=== PATIENT | male | born 1990 | race Caucasian/White ===

== ENCOUNTER 2017-09-08 21:14 | Inpatient (IN) ==
--- NOTE | 2017-09-08 21:28 | Emergency Department Report ---
Skin/Abscess/FB HPI - General Chief complaint: Skin/Abscess/Foreign Body Stated complaint: Red sore growing/painfull Time Seen by Provider: 09/08/17 21:27 Source: patient Mode of arrival: ambulatory Limitations: no limitations - History of Present Illness HPI narrative: Celestine is a 26 year old white male who comes to ER with cc: pimple to bottom. Noticed pain and swelling today, had girlfriend look at it and she noticed it was very swollen extending into scrotum. They decided to come to the ER to get it checked out. Patient is not diabetic. Prior hx of MRSA about 1.5 years ago. Running low grade fever tonight. complaint: abscess/boil Onset (ago): day(s) (1) Location: buttocks, genitals Relieving factors: none Associated symptoms: fever Treatments prior to arrival: none - Related Data Home Medications Medication Instructions Recorded Confirmed No known Home medications [No home 09/08/17 09/08/17 meds] Allergies Allergy/AdvReac Type Severity Reaction Status Date / Time No Known Allergies Allergy Unverified 05/18/16 14:30 Review of Systems All systems: reviewed and negative except as stated Constitutional: Reports: fever Gastrointestinal: Denies: vomiting Genitourinary: Reports: other (left scrotum with mild swelling) Integumentary: Reports: erythema, lesions, swelling [facility] Clinic Medical History Cellulitis (Acute Medical) - Social History Smoking status: Current every day smoker Physical Exam - General General appearance: alert, in no apparent distress - Head Head exam: atraumatic, normocephalic, normal inspection - Chest Chest inspection: Present: normal inspection, symmetric chest wall rise - Respiratory Respiratory exam: Present: normal lung sounds bilaterally - Cardiovascular Cardiovascular exam: Present: regular rate, normal rhythm - Abdominal Exam Abdominal exam: Present: soft, normal bowel sounds. Absent: distention, tenderness - Skin Skin exam: Present: warm, dry, intact, other (right buttock with erythema, swelling and tenderness extending into left scrotum) - Neurological Exam Neurological exam: Present: alert, oriented X3 - Psychiatric Psychiatric exam: Present: normal affect, normal mood Course Course Narrative: 2219 discussed lab and plan with patient and girlfriend. toradol has been given for pain. it has helped some. us ordered. Dilaudid 1 mg given IV for pain control prior to sono. 2314 Sono done - US Tech reports no obvious fluid collection with perineal sono. [address] Corrigan with [facility] who agrees to accept patient for acute possible obs admission. - Consultations Consultation #1: Dr Talley called @ 2209-labwork reviewed, recommended US and if abscess is present, call hospitalist to admit and consult him for I&D Consultation #2: Telemedicine Dr. Corrigan via [email or web address] Text @[address] Corrigan at 2319 - agree to admit pt for IV abx, serial exams, serial lab monitoring and surgery consult Vital Signs Temperature 99.6 F 09/08/17 21:23 Pulse Rate 100 09/08/17 21:23 Respiratory Rate 20 09/08/17 21:23 Blood Pressure 117/58 09/08/17 21:23 Pulse Oximetry 96 09/08/17 21:23 Temperature 98.9 F 09/08/17 22:49 Pulse Rate 98 09/08/17 22:49 Respiratory Rate 19 09/08/17 22:49 Blood Pressure 112/61 09/08/17 22:49 Pulse Oximetry 100 09/08/17 22:49 Skin/Abscess/Foreign Body - Lab Data Attestation: I reviewed the patient's lab results. Result diagrams: 09/08/17 21:41 09/08/17 21:41 Lab Results 09/08/17 09/08/17 Range/Units 21:41 21:41 WBC 17.7 H (4.5-11.0) T/MM3 RBC 4.65 (4.50-5.90) M/MM3 Hgb 14.8 (13.5-17.5) GM/DL Hct 43.7 (41-53) % MCV 94.0 (80-100) UM3 MCH 31.8 (26-34) UUG MCHC 33.9 (31-37) GM/DL RDW Std Deviation 44.3 (36.9-50.2) FL Plt Count 232 (130-400) T/MM3 MPV 9.6 (9.4-12.4) UM3 Immature Gran % (Auto) Not performed Neut % (Auto) Not performed Lymph % (Auto) Not performed Pepin % (Auto) Not performed Eos % (Auto) Not performed Baso % (Auto) Not performed Neut # (Auto) Not performed Lymph # (Auto) Not performed Pepin # (Auto) Not performed Eos # (Auto) Not performed Baso # (Auto) Not performed Abs Immat Gran (auto) Not performed Neutrophils % (Manual) 84.0 H (33-66) % Band Neutrophils % 3.0 (0-6) % Lymphocytes % (Manual) 2.0 L (23-45) % Monocytes % (Manual) 11.0 H (0-9.0) % Neutrophils # (Manual) 14.9 H (1.8-7.7) T/MM3 Band Neutrophils # 0.5 T/MM3 Lymphocytes # (Manual) 0.4 L (1-4.8) T/MM3 Monocytes # (Manual) 1.9 H (0-0.8) T/MM3 RBC Morph Comment Normal Turbidity < 20 (0-20) Sodium 135 (134-144) MEQ/L Potassium 4.1 (3.6-5) MEQ/L Chloride 97 L (98-107) MEQ/L Carbon Dioxide 28 (22-30) MEQ/L Anion Gap 10 (5-15) MEQ/L BUN 15.0 (9-20) MG/DL Creatinine 1.0 (0.8-1.5) MG/DL GFR Calculation 92 BUN/Creatinine Ratio 15 (6-26) RATIO Glucose 113 H (75-110) MG/DL Calculated Osmolality 262 (261-280) MOSM/KG Calcium 9.3 (8.4-10.2) MG/DL Total Bilirubin 0.90 (0.20-1.30) MG/DL Icterus Index < 2 (0-7) AST 29 (17-59) U/L ALT 39 (21-72) U/L Alkaline Phosphatase 60 (38-126) U/L C-Reactive Protein 59.0 H (0-9) MG/L Total Protein 7.4 (6.3-8.2) G/DL Albumin 4.1 (3.5-5.0) G/DL Globulin 3.3 (2.4-3.6) G/DL Albumin/Globulin Ratio 1.2 (1.1-2.2) RATIO Plasma Lactate 2.6 H (0.6-2.2) MMOL/L Specimen Hemolysis < 15 (0-25) Disposition Clinical Impression: Cellulitis Disposition: To [facility] Acute Care Condition: Stable Prescriptions: No Action No known Home medications [No home meds] 0 #0 misc - Seen By: midlevel and physician Addendum entered and electronically signed by Liliana Rajput APRN 09/08/17 23: 36: Final US report by [facility] shows severe subcutaneous edema within left gluteal tissues and loculated fluid collection which could represent abscess. severe subcutaneous edema within left gluteal tissues. Update of this report called to Dr. Corrigan at [phone]. Call to Dr. Talley at [phone] to update on US.
[2017-09-08] MEDS ORDERED: CLINDAMYCIN PB 600 MG/50 ML BAG IV SCH (21:45)
[2017-09-08] MEDS: SALINE FLUSH 10ml SYRINGE IVF PRN (21:56)
[2017-09-08] MEDS ORDERED: KETOROLAC 30 MG/ML INJECTION IVP ONE (22:03)
[2017-09-08] MEDS ORDERED: HYDROMORPHONE 2 MG/ML INJECTION IVP ONE (22:29)
[2017-09-09 00:28] VITALS: BMI 24.3
[2017-09-09] MEDS ORDERED: SENNA + DOCUSATE TABLET PO PRN (01:03)
[2017-09-09] MEDS ORDERED: ACETAMINOPHEN 650 MG SUPPOSITORY PR PRN (01:03)
[2017-09-09] MEDS ORDERED: ONDANSETRON 4 MG/2 ML INJECTION IVP PRN (01:03)
[2017-09-09] MEDS: SALINE FLUSH 10ml SYRINGE IVF PRN ×2 (01:13→01:57)
[2017-09-09] MEDS: LR 1,000 ML IV SCH ×4 (01:13→13:28)
[2017-09-09] MEDS: NICOTINE 14 MG PATCH TD SCH ×2 (01:35→08:07)
[2017-09-09] MEDS: HYDROCODONE/APAP 5mg/325mg TABLET PO PRN ×2 (01:54→19:00)
[2017-09-09] MEDS: HYDROMORPHONE 2 MG/ML INJECTION IVP PRN ×5 (01:55→23:26)
--- NOTE | 2017-09-09 02:17 | History & Physical Report ---
<Sharan Corrigan I - Last Filed: 09/09/17 02:11> History of Present Illness Date: 09/09/17 Chief complaint: Buttock Pain HPI: Jas is an otherwise healthy 26 year old man with a 1 day history of a painful pustule on his left buttock, with pain and swelling which rapidly increased. He had some chills and subjective fevers and does have a personal history of a MRSA lesion on his forehead, so he presented to the emergency department, where he did prove to have some early evidence of sepsis due to an abscess noted In his left gluteal tissue measuring 1.7 x 0.7 cm on ultrasound with fluid extension into his scrotum. he was placed on vancomycin and clindamycin, Dr. Adams was notified and he is admitted for further evaluation and management. Review of Systems - Constitutional Constitutional: Present: chills, fever(s) - EENMT Eyes: Absent: loss of vision, other - Cardiovascular Cardiovascular: Absent: chest pain, palpitations, syncope - Respiratory Respiratory: Absent: cough, dyspnea - Gastrointestinal Gastrointestinal: Absent: abdominal pain, change in bowel habits, diarrhea - Genitourinary Genitourinary: Present: as per HPI - Integumentary/Breasts Integumentary: Present: as per HPI, lesions ( Prior history of MRSA infection requiring incision and drainage) - Psychiatric Psychiatric: Absent: behavioral changes PFSH Patient Stated Medical History Hypertension Yes: WITH ANESTHESIA Other Cardiology Yes: FELT PALPITATIONS BEFORE Asthma Yes: SEASONAL Other Respiratory Yes: SMOKER Gastroesophageal Reflux Yes: TOOK NEXIUM IN THE PAST Disease Other Musculoskeletal Yes: COLD WEATHER EFFECTS HIS HANDS MRSA Yes: POSSIBLY OR JUST STAPH Anesthesia Reactions Yes: SEVERE HTN Post Traumatic Stress Disorder Yes Substance Use Disorder Yes: IN THE PAST Clinic Medical History Cellulitis (Acute Medical) Surgical History: tonsillectomy and adenoidectomy. repair of the left arm fracture around age 11 Family History: grandparents and father had heart disease, both parents still living - Social History Smoking status: Current every day smoker Packs per day: 0.5 Alcohol intake frequency: a few times a week (social drinker) Medications Home Medications Medication Instructions Recorded Confirmed Type No known Home medications [No home 09/08/17 09/08/17 History meds] Allergies Allergy/AdvReac Type Severity Reaction Status Date / Time No Known Allergies Allergy Unverified 05/18/16 14:30 Exam Vital Signs: Temperature 98.1 F 09/08/17 23:39 Pulse Rate 84 09/08/17 23:39 Respiratory Rate 20 09/08/17 23:39 Blood Pressure 117/56 09/08/17 23:39 Pulse Oximetry 96 09/08/17 23:39 Height/Weight/BMI: Height 6 ft Weight 81.2 kg Body Mass Index 24.3 - Constitutional Present: no acute distress, well developed, average body habitus - Routine HEENT Exam Head: Present: normocephalic, atraumatic Eye: Present: EOMI, PERRL ENT: Present: mucous membranes moist, dentition normal - Routine Neck Exam Present: supple, full ROM - Routine Respiratory Exam Present: CTA bilaterally. Absent: accessory muscle use, dyspnea - Routine Cardiovascular Exam Present: RRR, S1, S2, no murmur - Routine Abdominal Exam Present: soft, normoactive bowel sounds, non distended, non tender - Routine Exam Perineal: Present: erythema, induration, tenderness Comments: there is at least a 2-3 cm area of erythema and apparent induration, about 1 inch to the left of midline in his lower left buttocks which tracks inferiorly. This was somewhat difficult to examine via telemedicine equipment - Routine Extremities Exam Absent: cyanosis, clubbing, edema - Routine Skin Exam Present: intact Comments: See above under peroneal exam - Routine Neurological Exam Present: alert, oriented X3, CN II-XII intact. Absent: sensory deficit, motor deficit - Routine Psychiatric Exam Present: normal affect, normal thought process, cooperative - Additional findings Additional findings: examination performed using telemedicine equipment with the assistance of the bedside nurse Results - Labs CBC & Chem 7: 09/08/17 21:41 09/08/17 21:41 Assessment and Plan (1) Cellulitis Problem details: he had evidence of a loculated fluid collection in his left gluteal tissue, at least 1.70.7 cm, tracking inferiorly, seen on ultrasound in the emergency department. Current visit: Yes Status: Acute (2) Sepsis Problem details: subjective fever, leukocytosis, elevated lactic acid and C- reactive protein Current visit: Yes Status: Acute Assessment and Plan: He is admitted and continued on intravenous clindamycin. He also received a dose of vancomycin in the emergency department. He has responded to triage treatment, and we will recheck lactic acid in about 4 hours prior to that initial draw. Continue intravenous fluids. This is most likely due to recurrent MRSA infection, and the input and expertise of general surgery for comanagement is appreciated. He anticipates the need for incision and drainage. Local anesthesia only might be preferable, And indeed might be all that is necessary, given his history of malignant hypertension with anesthesia in the remote past. I discussed with him in the future not shaving the area with a razor. Will provide further symptomatic, supportive, and diagnostic cares as the current workup, or changes in his clinical scenario indicated. Plan of care was discussed with the patient at the time of my evaluation and he expressed an understanding and desire to proceed. DVT Prophylaxis: SCD's Sepsis Assessment - Evaluation Possible source: skin/soft tissue SIRS Criteria: temperature > or equal to 100.4 (Subjective. Also Lactate 2.6), WBC > or equal to 12,000, plasma CRP >2 above normal Hospital Course Summary Disclaimer: The visit summary below is not to be considered part of the above Progress Note. <Aníbal Loza - Last Filed: 09/09/17 16:50> History of Present Illness Date: 09/09/17 HPI: Mr Don corroborates that this was a quickly developing left gluteal lesion that he had initially thought was a pimple. It came up overnight and was debilitating to the point that he could sit yesterday. At 7 AM that yesterday they put a pen line around it noting it to be about 2 x 4 cm. However by last night prior to arrival it had grown immensely and patient had begun to feel subjectively ill. He has had an episode like this prior with an MRSA infection. Dr. Adams is planning to see this patient later this morning. I have read and agree with the medical surgical social and family history outlined below. My physical exam corroborates the points on Dr. Corrigan's physical exam and I have also palpated the abscess. As expected is remarkably tender and moderately flocculant at the inferior portion of the left gluteal but I do not appreciate the tracking that is seen on the ultrasound. Patient continues to remain clinically non-toxic. Lab work thus far has been reassuring of no septicemia [facility] Patient Stated Medical History Cerebrovascular Accident No Paralysis No Seizures No Syncope No Angina No Cardiac Arrhythmia No Congestive Heart Failure No Coronary Artery Disease No Heart Murmur No Hypertension No Hypotension No Myocardial Infarction No Rheumatic Fever No Valvular Heart Disease No Other Cardiology No Asthma No Bronchitis No Chronic Obstructive Pulmonary No Disease (COPD) Pneumonia No Pulmonary Edema No Pulmonary Embolism No Sleep Apnea No Tuberculosis No Other Respiratory No Diabetes Mellitus Type 1 No Diabetes Mellitus Type 2 No Cirrhosis No Gastroesophageal Reflux No Disease Gastrointestinal Bleeding No Hepatitis No Hiatal Hernia No Obstructive Bowel No Ulcer No Other GI No Osteoarthritis No Other Musculoskeletal No MRSA Yes: POSSIBLY OR JUST STAPH Anesthesia Reactions No Blood Transfusions No Chemotherapy No Malignant Hyperthermia No Other No Depression No Post Traumatic Stress Disorder Yes Substance Use Disorder Yes: IN THE PAST Now No Clinic Medical History Cellulitis (Acute Medical) he had evidence of a loculated fluid collection in his left gluteal tissue, at least 1.70.7 cm, tracking inferiorly, seen on ultrasound in the emergency department. Sepsis (Acute Medical) subjective fever, leukocytosis, elevated lactic acid and C-reactive protein Exam Vital Signs: Temperature 97.3 F 09/09/17 13:03 Pulse Rate 80 09/09/17 14:48 Respiratory Rate 16 09/09/17 13:03 Blood Pressure 122/63 09/09/17 14:48 Pulse Oximetry 93 09/09/17 14:48 Height/Weight/BMI: Height 6 ft Weight 81.193 kg Body Mass Index 24.3 Results - Labs CBC & Chem 7: 09/09/17 03:53 09/09/17 03:53 Assessment and Plan (1) Cellulitis Problem details: he had evidence of a loculated fluid collection in his left gluteal tissue, at least 1.70.7 cm, tracking inferiorly, seen on ultrasound in the emergency department. Current visit: Yes Status: Acute (2) Sepsis Problem details: subjective fever, leukocytosis, elevated lactic acid and C- reactive protein Current visit: Yes Status: Acute Assessment and Plan: Agree with the assessment and plan and antibiotics as listed above. Lab work thus far has been reassuring of no septicemia. Will continue the clindamycin at this time until wound cultures it can give appropriate antibiotic specificity. Not be averse to the use of vancomycin if the bacteria clinically appears refractory. The patient is young, not diabetic and has good kidney function. Patient is again mentioned his malignant hypertension but anesthesia has already visited and he has already had this discussion with them. Appreciation to Dr. Corrigan for his thorough incoming note overnight. Hospital Course Summary Disclaimer: The visit summary below is not to be considered part of the above Progress Note.
[2017-09-09] MEDS: CLINDAMYCIN PB 600 MG/50 ML BAG IV SCH ×3 (06:02→22:23)
--- NOTE | 2017-09-09 07:51 | General Surgery Consult Note ---
Consult date: 09/09/17 Attending Physician: Aníbal Loza MD Reason for consult: wound care (Left buttock abscess) History of present illness: Per [facility] Patient Stated Medical History Hypertension Yes: WITH ANESTHESIA Other Cardiology Yes: FELT PALPITATIONS BEFORE Asthma Yes: SEASONAL Other Respiratory Yes: SMOKER Gastroesophageal Reflux Yes: TOOK NEXIUM IN THE PAST Disease Other Musculoskeletal Yes: COLD WEATHER EFFECTS HIS HANDS MRSA Yes: POSSIBLY OR JUST STAPH Anesthesia Reactions Yes: SEVERE HTN Post Traumatic Stress Disorder Yes Substance Use Disorder Yes: IN THE PAST Clinic Medical History Cellulitis (Acute Medical) he had evidence of a loculated fluid collection in his left gluteal tissue, at least 1.70.7 cm, tracking inferiorly, seen on ultrasound in the emergency department. Sepsis (Acute Medical) subjective fever, leukocytosis, elevated lactic acid and C-reactive protein Surgical History: tonsillectomy and adenoidectomy. repair of the left arm fracture around age 11 Family History: parents healthy Hodgkins "on mother's side" - Social History Smoking status: Current every day smoker (1-2 packs) Alcohol intake frequency: a few times a month Household members: friend(s) (girlfriend) Current occupation: construction - [employer] Medications Home Medications Medication Instructions Recorded Confirmed Type No known Home medications [No home 09/08/17 09/08/17 History meds] Allergies Allergy/AdvReac Type Severity Reaction Status Date / Time No Known Allergies Allergy Unverified 05/18/16 14:30 Review of Systems 10-point ROS: negative except for HPI and the following: - General General: Present: fever, chills - Gastrointestinal Gastrointestinal: Present: nausea - Musculoskeletal Musculoskeletal: Present: joint pain (hands when it is cold) - Psychiatric Psychiatric: Present: anxiety (history of PTSD) - Vital Signs Last Vital Signs Temp 99.1 F 09/09/17 07:20 Pulse 85 09/09/17 07:20 Resp 18 09/09/17 07:20 BP 112/65 09/09/17 07:20 Pulse Ox 99 09/09/17 07:20 - Laboratory Result Diagrams: 09/09/17 03:53 09/09/17 03:53 General Surgery Results - Results Labs: 09/09/17 03:53 09/09/17 03:53 Hospital Course Summary Disclaimer: The visit summary below is not to be considered part of the above Progress Note.
--- NOTE | 2017-09-09 08:02 | Ultrasound Report ---
Indication: perineal abscess PROCEDURE: US extremity nonvascular LT: Encounter: Initial Comparison: None Technique/findings/ Impression: Grayscale and color Doppler sonographic imaging of the left gluteal area of concern was performed demonstrating diffuse subcutaneous edema and trace fluid with a more focal region of complex fluid on image #3 measuring 1.8 cm in diameter. There is also significant soft tissue swelling and thickening inferior to the scrotum. Impression: Severe cellulitis with a small 1.8 cm abscess in the left gluteal region. Recommended clinical correlation for signs and symptoms of Honorio's gangrene. There is a preliminary report by virtual [facility]. .
--- NOTE | 2017-09-09 09:14 | Anesthesia Preoperative Report ---
Anesthesia Preoperative Record - Date and Time Date: 09/09/17 Preoperative Diagnosis: perineal infection Proposed Procedure: I & D Buttock NPO Since Date: 09/08/17 NPO Since Time: 20:00 Allergies/Adverse Reactions: Allergies Allergy/AdvReac Type Severity Reaction Status Date / Time No Known Allergies Allergy Unverified 05/18/16 14:30 - Vital Signs Vital Signs: Temperature 99.1 F 09/09/17 07:20 Pulse Rate 85 09/09/17 07:20 Respiratory Rate 18 09/09/17 07:20 Blood Pressure 112/65 09/09/17 07:20 Pulse Oximetry 99 09/09/17 07:20 Height and Weight: Height 6 ft Weight 81.2 kg Body Mass Index 24.3 - Medications Inpatient Medications: Current Medications Acetaminophen (Tylenol Supp) 325 - 650 mg [place] Q5H PRN PRN Reason: Pain Hydrocodone Bitart/Acetaminophen ([place] 5/325) 1 tab PO Q6H PRN PRN Reason: Pain Last Admin: 09/09/17 01:54 Dose: 1 tab Hydromorphone HCl (Dilaudid) 0.5 mg IVP Q2H PRN PRN Reason: Pain Last Admin: 09/09/17 08:02 Dose: 0.5 mg Clindamycin Phosphate (Cleocin Premix) 600 mg in 50 mls @ 100 mls/hr IV O [facility] Last Infusion: 09/08/17 22:28 Dose: Infused Clindamycin Phosphate (Cleocin Premix) 600 mg in 50 mls @ 100 mls/hr IV Q8H [facility] Last Infusion: 09/09/17 06:38 Dose: Infused Lactated Ringer's (Lactated Ringers) 1,000 mls @ 100 mls/hr IV .Q10H [facility] Last Admin: 09/09/17 01:13 Dose: 100 mls/hr Ibuprofen (Motrin) 600 mg PO Q6H PRN PRN Reason: Pain Nicotine (Nicoderm) 14 mg TD DAILY [facility] Last Admin: 09/09/17 08:07 Dose: 14 mg Ondansetron HCl (Zofran) 4 mg IVP Q6H PRN PRN Reason: Nausea &/or vomiting Senna/Docusate Sodium (Senna Plus Tablet) 1 tab PO BID PRN PRN Reason: Constipation Sodium Chloride (Iv Flush) 10 - 80 ml IVF PRN PRN PRN Reason: Flushing Last Admin: 09/09/17 01:57 Dose: 10 ml Home Medications: Home Medications Medication Instructions Recorded Confirmed Type No known Home medications [No home 09/08/17 09/08/17 History meds] Is Patient on Beta Cyn?: No - Medical History Respiratory: DENIES: Asthma, Bronchitis, Chronic Obstructive Pulmonary Disease (COPD), Dyspnea, Orthopnea, Pulmonary Embolism, Pneumonia, Upper Respiratory Infection, Pulmonary Edema, Sleep Apnea, Tuberculosis, Other Cardiovascular: DENIES: Abnormal EKG, Angina, Arrhythmia, Congestive Heart Failure, Coronary Artery Disease, Heart Murmur, Hypertension, Hypotension, High Cholesterol, Myocardial Infarction, Rheumatic Fever, Valvular Heart Disease, Other Gastrointestional: DENIES: Obstructive Bowel, Hepatitis, Cirrhosis, Nausea or Vomiting Present, Gastroesophageal Reflux Disease, Gastrointestinal Bleeding, Hiatal Hernia, Ulcer , Morbid Obesity, Other Neuro/Musculoskeletal: Denies: HX.MS.OSAR, Back Problems, Cerebrovascular Accident, Depression, Headaches, Loss of Consciousness, Muscle Weakness, Neuromuscular Disorder, Paralysis, Paresthesia, Syncope, Seizures, Other Renal/Endocrine: DENIES: Diabetes Mellitus Type 1, Diabetes Mellitus Type 2, Renal Failure, Dialysis, Thyroid Disease, Weight Loss, Weight Gain, Other Other History: DENIES: Anesthesia Reactions, Now, Blood Transfusions, Chemotherapy , Cancer, Hemophilia, Malignant Hyperthermia, Sickle Cell Disease, Other - Surgical History HEENT Surgeries: Reports: Ear Surgery (TUBES), Tonsillectomy ( CHILD) Musculoskeletal Surgery/Tx: Reports: Other (Left arm surgery FROM COMPOUND FRACTURE) Anesthesia Reactions: Other (Pt states he almost during anesthesia twice. States mother said his Blood Pressure shot through the roof.) Hx Family Anesthesia Reaction: No (unknown) History of Motion Sickness: No - Social History Smoking Status: Current every day smoker (1-2 packs) Packs per day: 1 Pack-years: 10 Hx Chewing Tobacco Use: No Second Hand Exposure: Yes Alcohol Intake Frequency: a few times a month - Pertinent Findings Laboratory: CBC and BMP 09/09/17 03:53 09/09/17 03:53 BMP 09/09/17 03:53 Sodium 136 Potassium 3.9 Chloride 99 Carbon Dioxide 29 BUN 14.0 Creatinine 1.0 Glucose 106 Calcium 9.0 - Physical Exam Respiratory Exam: Present: lungs clear, bilateral breath sounds equal Cardiovascular Exam: Present: regular rate and rhythm, no murmur - Airway Assessment Mallampati Score: I TMD: 3 Fingerbreadths Overall Assessment: no airway concerns - ASA ASA Score: 2, E - Plan Plan: Pt is refusing general anesthesia. He states he will not consent to anesthesia. However he will accept local with MAC. Anesthesia: MAC - Discussion Discussion: Discussed risks/options/alternatives of anesthesia and questions answered. Patient consents. Nursing pain assessment noted. Present for Discussion: friend Attestation Statement: Prior to the delivery of any anesthetic medication, I examined the patient, developed the plan, obtained the patient's consent and discussed the risk and benefits of the procedure with the patient/guardian. - Additional Information Seen by Anesthesia: Yes
[2017-09-09] MEDS ORDERED: MIDAZOLAM 5mg/5ml INJECTION ONE (11:08)
[2017-09-09] MEDS ORDERED: FentaNYL 100 MCG/2 ML INJECTION ONE (11:10)
[2017-09-09] MEDS ORDERED: BUPIVACAINE 0.25%/EPI 1:200,000 30ml SDV ID ONE (11:48)
[2017-09-09] MEDS ORDERED: PROPOFOL 0 MG/0 ML VIAL IV ONE (12:07)
--- NOTE | 2017-09-09 12:20 | General Surgery Procedure Note ---
Date of Procedure: 09/09/17 Surgeon: Angie Steward/Stewardess Second: Gerardo Angel APRN Postoperative Diagnosis: left buttock abscess Procedure: Incision and drainage and surgical debridement of left buttock abscess, with culture. Estimated Blood Loss: See Anesthesia Record. Pathology: other (culture)
--- NOTE | 2017-09-09 13:11 | History and Physical ---
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 Upon verbal report it did not appear the patient was septic. He was afebrile, normotensive and not tachycardic. I had requested that the hospitalist system place the patient in the hospital and begin antibiotic therapy. Upon entering the room today, he did not appear to be in any acute distress. Upon questioning the patient, he informs me that he has had multiple abscesses in the past. He states that he has had them on his "forehead and arm." Upon questioning the patient regarding any prior history for MRSA infection, he informs me that he has had MRSA in the past. He denies any specific exposure to MRSA. He denies working in a care facility or visiting a family member within a care facility. PAST MEDICAL HISTORY Performed by my nurse practitioner, Gerardo Angel. PAST SURGICAL HISTORY Performed by my nurse practitioner, Gerardo Angel. MEDICATIONS Performed by my nurse practitionerGerardo. ALLERGIES Performed by my nurse practitionerGerardo. SOCIAL HISTORY Performed by my nurse practitioner, Gerardo Angel. FAMILY HISTORY Performed by my nurse practitionerGerardo. REVIEW OF SYSTEMS Performed by my nurse practitioner, Gerardo Angel. PHYSICAL EXAMINATION Jas, as stated above, is a 26-year-old young male who does not appear to be in acute distress. VITALS: Temperature 99.1, pulse 85, respirations 18, blood pressure 112/65, SaO2 99% on room air. HEENT: Normocephalic. Pupils are equal, round and reactive to light and accommodation. CHEST: Clear to auscultation bilaterally. HEART: Regular rate and rhythm. Normal S1 and S2 without gallops, murmurs or clicks. ABDOMEN: Palpation of the abdomen reveals it to be soft and nontender. I do not appreciate any evidence for hepatosplenomegaly or abnormal masses. EXTREMITIES: Without clubbing, cyanosis, or edema. NEURO: Cranial nerves II-XII grossly intact. Patient is without focal motor or sensory deficits. BUTTOCKS/: The patient was placed in a right lateral decubitus position. One can see some swelling of the left buttock near the base of the left scrotum. This area is somewhat erythematous in nature. Palpation does reveal a component of underlying induration and a slight component of fluctuance. There is no ecchymosis of the skin. No evidence for subcutaneous crepitus. This induration does extend up towards the base of the left scrotum. The scrotum itself is not erythematous or indurated in nature. LABORATORY/RADIOGRAPH EVALUATION The patient had a CBC yesterday through the ER and his white count was 17.7. Today his white count is 14.6. He did have 84% neutrophils yesterday upon admission. CMP and a plasma lactate level were obtained yesterday. CRP was also obtained. CRP was elevated at 59.0. Plasma lactate was elevated at 2.6. Plasma lactate was again repeated today and found to be normal at 1.0. Last evening an ultrasound was obtained. The patient was found to have a small fluid collection that was 1.8 cm in diameter suspicious for an abscess involving the left gluteal region. There was a component of some soft tissue edema. This tissue swelling and thickening was noted inferior to the scrotum corresponding with his physical findings. ASSESSMENT 26-year-old young male with history for MRSA infection/abscesses who presents with probable abscess involving the left buttock/left perineal region. PLAN Incision and drainage, excisional surgical debridement as indicated. I informed the patient it was my recommendation that we take him to the operative suite and inject some local anesthetic overlying this marked area of erythema. Would then recommend proceeding with attempted aspiration of the underlying suspected abscess cavity. If an abscess cavity is identified, would then of course recommend proceeding with incision and drainage and, if there is evidence for necrotizing fasciitis or soft tissue necrosis, then proceeding with appropriate excisional surgical debridement. I did discuss with the patient and his girlfriend who was present what this procedure would entail in detail and its associated risks which include, but are not limited to, bleeding and/or infection. The patient had concerns about anesthetic. He states that he "about " when he was 12 years of age as a result of high blood pressure that he developed during prior anesthetic. Denies any family history for problems with anesthetics. Denied ever being told he had a high temperature associated with prior anesthetic. I informed the patient that we would attempt to avoid any general anesthetic but that if he was found to have a life- threatening condition such as necrotizing fasciitis that he may need to undergo more formal anesthetic. Will defer further questions from an anesthetic standpoint to Anesthesia. The patient understood and wished to proceed. OSBALDO
[2017-09-09] MEDS ORDERED: INFLUENZA VAC. INJ. ADMIN CHARGE INJ ONE (14:00)
[2017-09-09] MEDS ORDERED: INFLUENZA VAC QIV 2017-18 (Fluarix*)(>=3yo) 0.5ml IM ONE (14:00)
--- NOTE | 2017-09-09 14:33 | Anesthesia Postoperative Note ---
- Date and Time Date: 09/09/17 Time: 13:05 - Status Patient Participated in Evaluation: Patient Participated in Person Vital Signs: Temperature 97.3 F 09/09/17 13:03 Pulse Rate 84 09/09/17 14:28 Respiratory Rate 16 09/09/17 13:03 Blood Pressure 114/58 09/09/17 14:28 Pulse Oximetry 93 09/09/17 14:28 Respiratory Function: Airway Patent Cardiovascular Function: Regular Pulse EKG: Sinus Rhythm Mental Status: Alert and Oriented Pain Intensity: 0 Hydration: Taking PO Fluids Complications During Recover: None Apparent - Follow-Up Instructions Instructions: Per Surgeon
[2017-09-10] MEDS: HYDROCODONE/APAP 5mg/325mg TABLET PO PRN ×3 (01:52→23:43)
[2017-09-10] MEDS: LR 1,000 ML IV SCH ×2 (03:10→18:08)
[2017-09-10] MEDS: CLINDAMYCIN PB 600 MG/50 ML BAG IV SCH ×3 (05:37→21:54)
[2017-09-10] MEDS: IBUPROFEN 600 MG TABLET PO PRN ×2 (06:15→19:34)
[2017-09-10] MEDS: HYDROMORPHONE 2 MG/ML INJECTION IVP PRN ×2 (07:55→20:53)
--- NOTE | 2017-09-10 08:01 | General Surgery Progress Note ---
Subjective Patient reports: tolerating a regular diet, voiding w/o difficulty, bowel movement (after surgery yesterday), afebrile - Vital Signs Last Vital Signs Temp 96.8 F 09/10/17 07:24 Pulse 66 09/10/17 07:24 Resp 16 09/10/17 07:24 BP 113/65 09/10/17 07:24 Pulse Ox 96 09/10/17 07:24 - Laboratory Result Diagrams: 09/10/17 04:16 09/09/17 03:53 - Abnormal Exam Abdominal: incision(s) (Kerlix roll packing removed, blood tinged. visible part of wound beefy, surounding tissue with light erythema) - Normal Exam General: resting, awakens easily, no acute distress Cardiovascular: regular rhythm, regular rate Respiratory: equal bilaterally, no labored breathing Abdominal: soft, non-tender Wound/Stoma/Drain Assessment - Wound Management Right Buttock Wound Type: Surgical Incision (post I&D abscess) Wound Bed Appearance: Beefy Red (the portion that is visible) Wound Surrounding Tissue Appearance: [place] (but less than yesterday) Wound Drainage Description: Serosanguineous Wound Drainage Amount: Small Wound Drainage Odor: Slight Odor Wound Dressing Status: Changed (pre medicated with Dilaudid 1 mg.) Wound Packing Type: Gauze Roll (NS moistened packed LIGHTLY into wound, too painful to place packing into the depth of the wound) Secondary Dressing: Gauze Pad (the mesh panty) Dressing Change Patient Tolerance: Tolerated Poorly (very slowly removed packing , stopping frequently waiting for him to indicate when to continue.) Assessment and Plan (1) Abscess of buttock, left Current Visit: Yes Status: Acute (2) Cellulitis Current Visit: Yes Status: Acute Problem details: he had evidence of a loculated fluid collection in his left gluteal tissue, at least 1.70.7 cm, tracking inferiorly, seen on ultrasound in the emergency department. (3) Sepsis Current Visit: Yes Status: Acute Problem details: subjective fever, leukocytosis, elevated lactic acid and C-reactive protein Plan: POD #1 I&D left buttock abscess. WBC down to 9.5 from 14.6 yesterday. Will continue daily packing changes with pain medication prior to change. Continue current ABX therapy while awaiting micro. Hospital Course Summary Disclaimer: The visit summary below is not to be considered part of the above Progress Note. Hospital Course: 09/10/17 08:19 POD #1 I&D left buttock abscess. WBC down to 9.5 from 14.6 yesterday. Will continue daily packing changes with pain medication prior to change. Continue current ABX therapy while awaiting micro.
[2017-09-10] MEDS: NICOTINE 14 MG PATCH TD SCH (08:35)
[2017-09-10] MEDS: POLYETHYL GLYCOL 3350 17gm PACKET PO SCH (08:35)
--- NOTE | 2017-09-10 11:34 | Operative Note ---
DATE OF SERVICE 09/09/2017 SURGEON William Adams MD PREOPERATIVE DIAGNOSIS Probable left perineal abscess. POSTOPERATIVE DIAGNOSIS Left perineal abscess. PROCEDURE Use of intraoperative ultrasound and incision and drainage of left perineal abscess. Excisional surgical debridement of necrotic subcutaneous tissue. ANESTHESIA TIVA/local. BRIEF HISTORY/INDICATIONS Mr. Don is a 26-year-old young male whom I was asked to see late last evening /earlier this morning as the result of probable abscess involving the perineum. The patient's clinical history, physical examination, and radiographic findings were not indicative for necrotizing fasciitis. I had recommended the patient be admitted and begun on antibiotics. Earlier this morning I did see the patient and he was found to have an area of induration and tenderness involving the left buttock/left perineal region just posterior to the base of the scrotum. I was recommend to the patient that he undergo surgical intervention/ probable incision and drainage and possible excisional surgical debridement pending intraoperative findings. The patient presents to undergo this procedure. For completeness please refer to notes included in the patient's chart. DESCRIPTION OF PROCEDURE After informed consent was obtained, the patient was brought to the operative suite and placed on the table in a lithotomy position. The scrotal, perineal region and buttocks were then prepped and draped in sterile fashion. Formal time-out was then completed. Ultrasonography was then performed involving the left perineal region overlying the area of induration. Upon ultrasonography one could see edematous soft tissues, but a discrete well-defined abscess cavity was not identified upon ultrasonography. Next, 0.5% Marcaine with epinephrine was injected overlying this area of erythema and induration within the left perineal region just posterior to the base of the scrotum and upon the more anterior aspect of the left buttock. Next, a 1.5-2 cm cruciate incision was then made overlying the area of analgesia. Underlying abscess cavity was identified and purulent material was expressed. The edges of the cruciate incision were then excised to facilitate packing. A hemostat was then introduced into the abscess cavity and was able to be advanced up towards the base of the scrotum within the left perineal region. Additional 0.5% Marcaine was injected overlying this area of tunneling. Incision was then extended in an anterior fashion an additional 3-4 cm. Dissection was then carried down through deep subcuticular tissues to the underlying abscess cavity. The entire area had now been opened so that it was able to be carefully visualized. There was no evidence for necrotizing fasciitis. There was no loss of the tissue plane between the subcutaneous tissues and the adjacent fascia. One could see some necrotic/grossly infected subcutaneous tissues within the depth the wound as well as along the edge of the abscess cavity. This was debrided sharply until all grossly infected tissue had been debrided. Next, a 2-inch Kerlix moistened in normal saline was then packed within the wound. The patient is in the process of awakening from his anesthetic will be sent back to the preop area once deemed in stable condition. OSBALDO
[2017-09-10 16:01] VITALS: RESP 16
--- NOTE | 2017-09-10 21:46 | Progress Note ---
- Date 09/10/17 Subjective: Seen sleeping heavily and poorly rousable this morning. Nursing reports that he slept all throughout the day and is later absent from room this evening. Nursing reports that he has been sneaking way to smoke Objective Vital signs: Temperature 98.0 F 09/10/17 19:57 Pulse Rate 65 09/10/17 19:57 Respiratory Rate 16 09/10/17 19:57 Blood Pressure 120/67 09/10/17 19:57 Pulse Oximetry 98 09/10/17 19:57 Height/Weight/BMI: Height 6 ft Weight 82 kg Body Mass Index 24.3 - Constitutional Present: well nourished, well developed - Routine HEENT Exam Eye: Present: EOMI ENT: Present: mucous membranes moist, dentition normal - Routine Respiratory Exam Present: CTA bilaterally. Absent: wheezes - Routine Cardiovascular Exam Present: RRR. Absent: murmur - Routine Abdominal Exam Present: soft, normoactive bowel sounds, non distended. Absent: tenderness - Routine Rectal Exam Patient deferred: visual exam Comments: Abscess appears to be significantly less erythematous. Packing appears appropriate with minimal discharge - Routine Extremities Exam Present: normal capillary refill - Routine Skin Exam Present: dry, warm - Routine Neurological Exam Present: alert, oriented X3, CN II-XII intact - Routine Lymphatic Exam Lymphatic: Absent: adenopathy - Routine Psychiatric Exam Present: normal affect Results - Labs CBC & Chem 7: 09/11/17 04:01 09/09/17 03:53 Microbiology Results: Microbiology 09/09/17 11:54 Perineal Gram Stain - Final 09/09/17 11:54 Perineal Surgical Culture - Preliminary Staphylococcus aureus Assessment and Plan (1) Cellulitis Problem details: he had evidence of a loculated fluid collection in his left gluteal tissue, at least 1.70.7 cm, tracking inferiorly, seen on ultrasound in the emergency department. Status: Acute (2) Sepsis Problem details: subjective fever, leukocytosis, elevated lactic acid and C- reactive protein Status: Acute Assessment and Plan: Patient is shown some significant sedation effects from the opioid medications. Is also beginning show questionable compliance and social behavior. Will continue IV clindamycin and follow surgeries recommendations for continued treatment of wound. Anticipating discharge perhaps tomorrow - Time spent with patient Time with patient PN: 25 minutes Hospital Course Summary Disclaimer: The visit summary below is not to be considered part of the above Progress Note. Hospital Course: 09/10/17 08:19 POD #1 I&D left buttock abscess. WBC down to 9.5 from 14.6 yesterday. Will continue daily packing changes with pain medication prior to change. Continue current ABX therapy while awaiting micro.
[2017-09-11] MEDS: CLINDAMYCIN PB 600 MG/50 ML BAG IV SCH (05:03)
[2017-09-11] MEDS: HYDROMORPHONE 2 MG/ML INJECTION IVP PRN ×2 (05:33→10:07)
[2017-09-11] MEDS: LR 1,000 ML IV SCH (06:00)
[2017-09-11 08:22] VITALS: O2SAT 99
[2017-09-11] MEDS: NICOTINE 14 MG PATCH TD SCH (08:24)
[2017-09-11] MEDS: POLYETHYL GLYCOL 3350 17gm PACKET PO SCH (08:25)
[2017-09-11] MEDS: HYDROCODONE/APAP 5mg/325mg TABLET PO PRN (08:28)
[2017-09-11] MEDS ORDERED: HYDROCODONE/APAP 5mg/325mg TABLET PO ONE (09:04)
[2017-09-11] MEDS ORDERED: HYDROCODONE/APAP 5mg/325mg TABLET PO PRN (09:06)
--- NOTE | 2017-09-11 09:23 | Progress Note ---
DATE 09/10/2017 FINDINGS The patient was seen this evening on rounds. He states he is feeling significantly better. Packing change this morning was somewhat uncomfortable. VITALS: Afebrile. Normotensive. Please refer to EMR. BUTTOCKS/: The patient was rolled in a right lateral decubitus position. Attention was focused to the wound involving left perineum. Palpation revealed significantly less induration. Erythema is subsiding. ASSESSMENT A 26-year-old gentleman status post I&D of a left perineal abscess. Patient improving. PLAN I do see that the preliminary culture is revealing Staph aureus. Cultures are pending. It would be my recommendation that tomorrow I believe we could discharge the patient to home and instruct the patient's girlfriend on how to pack his wound on a daily basis. Will have the patient follow back up in my surgical office or the Wound Center for ongoing care. Discharge the patient on oral antibiotics that would cover possible MRSA, given his prior history for MRSA. OSBALDO
[2017-09-11] MEDS: SALINE FLUSH 10ml SYRINGE IVF PRN (10:09)
[2017-09-11 11:32] VITALS: BP 130/71; PULSE 71; TEMP 98.2
--- NOTE | 2017-09-11 13:55 | Discharge Summary ---
Discharge Information Date of admission: 09/08/17 23:27 Attending Physician: Aníbal Loza MD Consults: 09/09/17 00:41 Dietary Consult [CONS] Routine Comment: Reason For Exam: - Discharge Diagnosis (1) Abscess of buttock, left Status: Acute (2) Cellulitis Status: Acute (3) Sepsis Status: Acute - Laboratory Labs: 09/11/17 04:01 09/09/17 03:53 - Microbiology Microbiology 09/09/17 11:54 Perineal Gram Stain - Final 09/09/17 11:54 Perineal Surgical Culture - Final Staphylococcus aureus, MRSA History of Present Illness HPI: Mr Don corroborates that this was a quickly developing left gluteal lesion that he had initially thought was a pimple. It came up overnight and was debilitating to the point that he could sit yesterday. At 7 AM that yesterday they put a pen line around it noting it to be about 2 x 4 cm. However by last night prior to arrival it had grown immensely and patient had begun to feel subjectively ill. He has had an episode like this prior with an MRSA infection. Dr. Adams is planning to see this patient later this morning. I have read and agree with the medical surgical social and family history outlined below. My physical exam corroborates the points on Dr. Corrigan's physical exam and I have also palpated the abscess. As expected is remarkably tender and moderately flocculant at the inferior portion of the left gluteal but I do not appreciate the tracking that is seen on the ultrasound. Patient continues to remain clinically non-toxic. Lab work thus far has been reassuring of no septicemia Objective Vital signs: Temperature 98.2 F 09/11/17 11:31 Pulse Rate 71 09/11/17 11:31 Respiratory Rate 16 09/11/17 11:31 Blood Pressure 130/71 09/11/17 11:31 Pulse Oximetry 99 09/11/17 11:31 Height/Weight/BMI: Height 6 ft Weight 82.3 kg Body Mass Index 24.3 - Constitutional Present: well nourished, well developed - Routine HEENT Exam Eye: Present: EOMI ENT: Present: mucous membranes moist, dentition normal - Routine Respiratory Exam Present: CTA bilaterally. Absent: wheezes - Routine Cardiovascular Exam Present: RRR. Absent: murmur - Routine Abdominal Exam Present: soft, normoactive bowel sounds, non distended. Absent: tenderness - Routine Extremities Exam Present: normal capillary refill - Routine Skin Exam Present: dry, warm - Routine Neurological Exam Present: alert, oriented X3, CN II-XII intact - Routine Lymphatic Exam Lymphatic: Absent: adenopathy - Routine Psychiatric Exam Absent: cooperative, good insight, good judgment Hospital Course This is a general summary of the patient's hospital course. For more details refer to the complete medical record. Hospital course: 09/10/17 08:19 POD #1 I&D left buttock abscess. WBC down to 9.5 from 14.6 yesterday. Will continue daily packing changes with pain medication prior to change. Continue current ABX therapy while awaiting micro. Patient is shown some significant sedation effects from the opioid medications. Is also beginning show questionable compliance and social behavior with elopement to go smoke. Will continue IV clindamycin and follow surgeries recommendations for continued treatment of wound. Anticipating discharge perhaps tomorrow Discharge Plan - Discharge Disposition Discharge Date: 09/11/17 Disposition: Discharged Home, Self-Care *Condition: Stable *Reason For Visit: perineal infection - Discharge Medications *Discharge Medications: New Clindamycin [Cleocin] 600 mg PO BIDWM 7 Days #28 cap Hydrocodone/APAP 5/325 [Catharpin 5/325] 1 - 2 tab PO Q4H PRN #30 tab PRN Reason: Pain Mupirocin Calcium [Bactroban Nasal] 1 gm NS BID #30 g - Discharge Packet/Instructions *Diet: as tolerated *Activity: Do not drive, operate machinery while taking pain medication. May shower with packing in place, then remove packing and place new packing. *Pain Management/Treatment: Follow prescriptions as prescribed *Wound Care: Remove packing and replace with new packing daily, cover with dry jean paul of pad. Use Hibicleanse for showers and place Bactroban ointment in nose twice a day. Additional Instructions: Report to the wound clinic (in the [facility] builing by the ER) on FridaySep 16 at 10:30 am. *Expected Signs/Symptoms: Gradual decrease in depth of the wound and decrease in tenderness at time of dressing change. *Notify Physician if: 1. Call your surgeon if you are having problems relating to your surgery at [phone]. 2. Problems such as: Temp above 101.5 degrees. You develop redness, excessive swelling of the incision, increasing pain or excessive foul smelling drainage. 3. If the office is closed, call [facility] at [phone] and have your Surgeon paged. *During Business Hours Contact: Call your surgeon at at [phone]. *After Business Hours Contact: If the office is closed, call [facility] at [phone] and have your Surgeon paged. - Referrals/Follow Up *Referrals/Follow Up: William Adams MD [Physician] - 09/23/17 10:30 am (In the wound Clinic ( ground floor of the Surgery Center)) - Patient Handouts Patient Handouts: MRSA (Methicillin-Resistant Staphylococcus Aureus) (DC), Abscess (GEN) - Dismissal Complete Discharge Instructions are:: Complete
--- NOTE | 2017-09-11 15:32 | Progress Note ---
DATE: 09/11/2017 FINDINGS Jas was without complaints today. He was out smoking cigarettes a few times this morning. He therefore did not appear to be in any distress. Vitals: Afebrile. Normotensive. Please refer to EMR. Last recorded vitals include temperature 98.2, pulse 71, respirations 16, blood pressure 130/71, SAO2 99% on room air. PHYSICAL EXAMINATION CHEST: Clear to auscultation bilaterally. HEART: Regular rate and rhythm. Normal S1 and S2 without gallops, murmurs or clicks. BUTTOCKS: Attention was focused to the area of concern involving the left perineal region. The wound had been repacked this morning. I therefore did not remove the packing. The induration and erythema surrounding the prior abscess cavity continues to dissipate. Palpation around the open portion of the wound revealed less induration and less tenderness. LABORATORY/RADIOGRAPHIC EVALUATION The patient's cultures did return as that of an MRSA. White count today was 5.8. ASSESSMENT 26-year-old male with MRSA abscess involving left perineum. Status post incision and drainage and excisional surgical treatment. Patient doing well. PLAN The patient has had multiple MRSA infections in the past per his report. I do believe the patient could be discharged to home. Would recommend Bactroban ointment to his nose to try to eradicate any MRSA colonization within his nose. Would recommend Hibiclens showers. Would recommend packing his wound on a daily basis with gauze moistened in saline. Would DC the patient home on Bactrim DS. Will have the patient follow up in our wound center on Friday. Supplies and instructions were given to the patient's girlfriend on how to pack his wound. I informed the patient and his girlfriend that if there are any concerns they could contact me through the hospital or contact the wound center. The patient is to be discharged later today. OSBALDO
== END 2017-09-11 14:30 | disposition home or self-care (01) | DRG 854 ==
LOC: ED 21:14 → SRG 23:27
PROVIDERS: ADMIT Internal Medicine; ATTEND Family Medicine